=== PATIENT | male | born 1965 | race Caucasian/White ===

== ENCOUNTER 2021-05-01 13:41 | Emergency (ER) | payer OTHER ==
[~2021-05-01] VITALS: Ht 180.3 cm; Wt 115.5 kg
--- NOTE | 2021-05-01 14:20 | RAD ---
EXAM: 3 views of the left wrist DATE: 05/01/2021 2:16 PM INDICATION: Reason: fall on ice, pain / Spl. Instructions: / History: COMPARISON: No Prior FINDINGS: No acute fracture or dislocation. Joint spaces are preserved without significant degenerative/prolife rative change. No significant soft tissue swelling. IMPRESSION: No acute fracture or dislocation. Electronically signed by: Derrek Martínez MD (05/01/2021 2:17 PM) [facility]
--- NOTE | 2021-05-01 14:42 | PHYS DOC ---
Past History Past Surgical History: Appendectomy Alcohol Use: Occasionally General Adult EDM: Chief Complaint: WRIST PAIN HPI: HPI: Patient is a 55-year-old male that presents today with left wrist pain. Patient states that this morning he was trying to get out of his truck and slipped on the ice and fell and tried to break his fall by extending his wrist out and he said he felt pain in his wrist and hand area. Patient states he has pain with movement of his wrist area into his hand, this only happens with certain movements. Review of Systems: Review of Systems: Constitutional: Denies fever or chills Eyes: Denies change in visual acuity HENT: Denies nasal congestion or sore throat Respiratory: Denies cough or shortness of breath Cardiovascular: Denies chest pain or edema GI: Denies abdominal pain, nausea, vomiting, bloody stools or diarrhea : Denies dysuria Musculoskeletal: Left wrist pain Integument: Denies rash Neurologic: Denies headache, focal weakness or sensory changes Endocrine: Denies polyuria or polydipsia Lymphatic: Denies swollen glands Psychiatric: Denies depression or anxiety Allergies: Allergies: Allergies Coded Allergies Type Severity Reaction Last Updated Verified No Known Drug Allergies 05/01/21 No Physical Exam: PE: Constitutional: Well developed, well nourished, no acute distress, non-toxic appearance. [] HENT: Normocephalic, atraumatic, bilateral external ears normal, oropharynx moist, no oral exudates, nose normal. [] Eyes: PERRLA, EOMI, conjunctiva normal, no discharge. [] Neck: Normal range of motion, no tenderness, supple, no stridor. [] Cardiovascular:Heart rate regular rhythm, no murmur [] Lungs & Thorax: Bilateral breath sounds clear to auscultation [] Abdomen: Bowel sounds normal, soft, no tenderness, no masses, no pulsatile masses. [] Skin: Warm, dry, no erythema, no rash. [] Back: No tenderness, no CVA tenderness. [] Extremities: Left wrist tenderness with palpation over the joint, no crepitus or deformity noted, patient does have referred pain into the hand with movement of the wrist, patient does have adequate range of motion of the elbow and shoulder as well. Radial pulse is 2+, cap refill is less than 2 seconds distal to the injury and neuro is intact distal. No tenderness, no cyanosis, no clubbing, ROM intact, no edema. [] Neurologic: Alert and oriented X 3, normal motor function, normal sensory func tion, no focal deficits noted. [] Psychologic: Affect normal, judgement normal, mood normal. [] Current Patient Data: Vital Signs: Vital Signs Date Time Temp Pulse Resp B/P (MAP) Pulse Ox O2 Delivery O2 Flow Rate FiO2 05/01/21 14:00 98.3 92 18 134/93 (107) 96 Room Air EKG: EKG: [] Radiology/Procedures: Radiology/Procedures: REASON: fall on ice, pain PROCEDURE: WRIST 3V LEFT EXAM: 3 views of the left wrist DATE: 05/01/2021 2:16 PM INDICATION: Reason: fall on ice, pain / Spl. Instructions: / History: COMPARISON: No Prior FINDINGS: No acute fracture or dislocation. Joint spaces are preserved without significant degenerative/proliferative change. No significant soft tissue swelling. IMPRESSION: No acute fracture or dislocation. Electronically signed by: Derrek Martínez MD (05/01/2021 2:17 PM) [facility] [] Heart Score: C/O Chest Pain: No Risk Factors: Risk Factors: DM, Current or recent (<one month) smoker, HTN, HLP, family history of CAD, obesity. Risk Scores: Score 0 - 3: 2.5% MACE over next 6 weeks - Discharge Home Score 4 - 6: 20.3% MACE over next 6 weeks - Admit for Clinical Observation Score 7 - 10: 72.7% MACE over next 6 weeks - Early Invasive Strategies Course & Med Decision Making: Course & Med Decision Making Pertinent Labs and Imaging studies reviewed. (See chart for details) 1440 reviewed radiological results with patient did inform him there was no acute process noted on the x-ray, I will place the patient in a Velcro wrist splint, I did inform him that if he continues to have pain after 5 to 7 days is to follow-up with his primary care physician for further x-rays. Patient can take Tylenol and/or ibuprofen as needed for pain, patient verbalized understanding of all instructions and is agreeable with the plan of care. Dragon Disclaimer: Dragnaveed Disclaimer: This electronic medical record was generated, in whole or in part, using a voice recognition dictation system. Departure Departure: Impression: Primary Impression: Left wrist sprain Qualified Codes: S63.502A - Unspecified sprain of left wrist, initial encounter Disposition: HOME / SELF CARE / HOMELESS Condition: STABLE Referrals: PCP,UNKNOWN (PCP) Patient Instructions: Wrist Sprain with [facility] Additional Instructions: Ice 20 minutes on 3-4 times daily to help with pain and swelling Tylenol and/or ibuprofen as needed for pain Velcro splint wear as needed for comfort If your pain continues after 5 to 7 days follow-up with your primary care for further evaluation and management. JENNIFER CHOPRA [employer] May 01, 2021 14:42
[2021-05-01 15:14] VITALS: BP 152/80
== END 2021-05-01 15:15 | disposition home or self-care (01) ==
LOC: ER 13:41
DX: S63.502A Unspecified sprain of left wrist, initial encounter (principal); W00.0XXA Fall on same level due to ice and snow, initial encounter; Y93.89 Activity, other specified; Y92.89 Other specified places as the place of occurrence of the external cause; Y99.8 Other external cause status
CPT/HCPCS: 29125; 73110; 99283